=== PATIENT | female | born 1975 | race Caucasian/White ===

== ENCOUNTER → 2016-10-31 | Outpatient (CLI) | payer BC ==
[~2016-10-31] MED LIST: FURO40TA4 PO; MAGN400T39 PO; TOPI25TA10 PO; TORS10TA5 PO
--- NOTE | 2016-10-31 12:09 | Diagnostic Imaging Report ---
PROCEDURE: US PELVIC (NON OB). TECHNIQUE: Multiple real-time grayscale images were obtained over the pelvis in various projections transabdominally. INDICATION: Abdominal pain. Elevated liver enzymes. FINDINGS: The uterus is 7.8 x 4.4 x 3.7 cm. The endometrial stripe is not seen. The ovaries are also obscured by bowel gas. The urinary bladder appears unremarkable. No obvious uterine mass. This exam was ordered as a transabdominal pelvic ultrasound only. IMPRESSION: Limited study. Further evaluation with a transvaginal pelvic ultrasound or CT scan could be considered. Dictated by: Dictated on workstation # [id number]
--- NOTE | 2016-10-31 12:12 | Diagnostic Imaging Report ---
PROCEDURE: US abdomen complete. TECHNIQUE: Multiple real-time grayscale images were obtained over the abdomen in various projections. INDICATION: Elevated liver enzymes. Abdominal pain. FINDINGS: The pancreas is obscured by bowel gas. The liver is fairly homogeneous with no focal lesion. The CBD is obscured. The gallbladder demonstrates no stones or wall thickening. No pericholecystic fluid. The sonographic Cyr sign is reportedly negative. The spleen is 9.1 cm in length, normal. The abdominal aorta is largely obscured. The visualized portions of the IVC appear patent. The left kidney is 9.8 cm and the right kidney is 9.5 cm in length. No hydronephrosis or focal lesion. There is no ascites or fluid collection identified. IMPRESSION: No definite abnormality. Dictated by: Dictated on workstation # [id number]
[2016-10-31 12:36] LABS: ALANINE AMINOTRANSFERASE 440 U/L (0-55); ALBUMIN 4.4 G/DL (3.2-4.5); AMYLASE 43 U/L (25-125); ANION GAP 11 MMOL/L (5-14); ASPARTATE AMINO TRANSFERASE 119 U/L (5-34); BILIRUBIN,TOTAL 0.3 MG/DL (0.1-1.0); BLOOD UREA NITROGEN 10 MG/DL (7-18); BUN/CREATININE RATIO 13; CALCIUM 9.9 MG/DL (8.5-10.1); CARBON DIOXIDE 27 MMOL/L (21-32); CHLORIDE 101 MMOL/L (98-107); CREATININE SERUM 0.75 MG/DL (0.60-1.30); GFR ESTIMATED > 60; GLUCOSE 93 MG/DL (70-105); LIPASE 28 U/L (8-78); SODIUM 139 MMOL/L (135-145); TOTAL PROTEIN 8.1 G/DL (6.4-8.2)
== END ==
LOC: RAD 10:52
PROVIDERS: ATTEND Nurse Practitioner Family
DX: R74.8 Abnormal levels of other serum enzymes (principal); R10.9 Unspecified abdominal pain
CPT/HCPCS: 36415; 76700; 76856; 80053; 80074; 82150; 83690

== ENCOUNTER → 2016-11-21 | Outpatient (CLI) | payer BC ==
[~2016-11-21] MED LIST changes: +CATHETER FLUSH 10 ML SYR IV PRN
--- NOTE | 2016-11-21 18:59 | Diagnostic Imaging Report ---
INDICATION: Abdominal pain Patient received 5.5 mCi technetium 99m Choletec, intravenously. Imaging reveals prompt distribution of activity throughout the liver and rapid uptake by biliary tree and gallbladder. Activity passes into the small bowel. Patient ingested fat containing meal which resulted in approximately 81% gallbladder ejection. Values greater than 50% are considered normal. IMPRESSION: Normal hepatobiliary scan. Dictated by: Dictated on workstation # [id number]
== END ==
LOC: CARD 11:44
PROVIDERS: ATTEND Nurse Practitioner Family
DX: R10.13 Epigastric pain (principal)
CPT/HCPCS: 78227

== ENCOUNTER → 2016-12-12 | Outpatient (CLI) | payer BC ==
[~2016-12-12] MED LIST changes: -CATHETER FLUSH 10 ML SYR IV PRN; +GADOBUTROL 10 MMOL/10 ML (GADAVIST) VIAL IV ONE
--- NOTE | 2016-12-12 14:06 | Diagnostic Imaging Report ---
PROCEDURE: MR imaging of the brain with and without contrast. TECHNIQUE: Multiplanar, multisequence MR imaging of the brain was performed with and without contrast. INDICATION: Facial pain and headache. 10 mL of Gadovist is administered intravenously. FINDINGS: There is no diffusion restriction to suggest an acute infarct or other diffusion abnormality. The brain parenchyma demonstrates normal signal in the gaitan and white matter with no demyelinating lesions, brain edema or enhancing mass identified. There is no hydrocephalus. No extra-axial fluid collection or mass is seen. The central vascular flow voids appear grossly unremarkable. The internal auditory canals and inner ear structures are also symmetric. The pituitary gland is normal in size. No hypothalamic or pineal region mass. IMPRESSION: Unremarkable exam. Dictated by: Dictated on workstation # [id number]
--- NOTE | 2016-12-12 19:44 | Diagnostic Imaging Report ---
PROCEDURE: MRI orbits, maxi/face with and without contrast. TECHNIQUE: Multiplanar, multisequence MRI of the orbits and face was performed with and without contrast. INDICATION: Facial pain. 10 mL of Gadavist is administered intravenously. FINDINGS: There are susceptibility artifacts seen at the level of the teeth, probably related to dental fillings and possible other dental procedures. This could obscure an abnormality in the immediate vicinity of the alveolar plate of the mandible, particularly on the left side. The artifacts do not have significant extension elsewhere, however, outside the region of the mouth. The paranasal sinuses appear normal with no mass or mucosal thickening. There is a normal signal in the pre certification specialist muscles and in the tongue and normal muscle bulk. The submandibular and parotid glands appear unremarkable. The orbits have symmetric appearance with normal caliber of the optic nerves and the extraocular muscles. The globes are symmetric. Minimally prominent lymph nodes up to 1.2 cm in the level II cervical chain are seen on this exam as well as a suggested intraparotid lymph node measuring 1 cm, of questionable clinical significance. Smaller lymph node is also seen in the left parotid gland. The oropharynx and the nasopharynx appear unremarkable. No enhancing mass is appreciated. IMPRESSION: No significant abnormality. Dictated by: Dictated on workstation # [id number]
== END ==
LOC: RAD 09:12
PROVIDERS: ATTEND Nurse Practitioner Family
DX: R51 Headache (principal)
CPT/HCPCS: 70543; 70553

== ENCOUNTER 2016-12-16 14:55 | Outpatient (RCR) | payer BC ==
[2016-11-25 11:00] LABS: BASOPHILS % (AUTO) 0 % (0-10); EOSINOPHILS # (AUTO) 0.2 10^3/uL (0.0-0.3); EOSINOPHILS % (AUTO) 2 % (0-10); LYMPHOCYTES # (AUTO) 2.2 X 10^3 (1.0-4.0); LYMPHOCYTES % (AUTO) 26 % (12-44); MEAN CORPUSCULAR HEMOGLOBIN 30 PG (25-34); MEAN CORPUSCULAR HGB CONC 33 G/DL (32-36); MEAN CORPUSCULAR VOLUME 91 FL (80-99); MEAN PLATELET VOLUME 10.7 FL (7.4-10.4); MONOCYTES # (AUTO) 0.5 X 10^3 (0.0-1.0); MONOCYTES % (AUTO) 5 % (0-12); NEUTROPHILS # (AUTO) 5.5 X 10^3 (1.8-7.8); NEUTROPHILS % (AUTO) 66 % (42-75); PLATELET COUNT 436 10^3/uL (130-400); RED BLOOD COUNT 4.64 10^6/uL (4.35-5.85); RED CELL DISTRIBUTION WIDTH 12.3 % (10.0-14.5); WHITE BLOOD COUNT 8.3 10^3/uL (4.3-11.0)
[2016-11-25 11:12] LABS: ALANINE AMINOTRANSFERASE 45 U/L (0-55); ALBUMIN 4.5 GM/DL (3.2-4.5); ANION GAP 10 MMOL/L (5-14); ASPARTATE AMINO TRANSFERASE 29 U/L (5-34); BILIRUBIN,TOTAL 0.3 MG/DL (0.1-1.0); BLOOD UREA NITROGEN 17 MG/DL (7-18); BUN/CREATININE RATIO 21 (0-20); CALCIUM 9.6 MG/DL (8.5-10.1); CARBON DIOXIDE 28 MMOL/L (21-32); CHLORIDE 100 MMOL/L (98-107); CREATININE SERUM 0.81 MG/DL (0.60-1.30); GFR ESTIMATED > 60; GLUCOSE 101 MG/DL (70-105); HEMOLYSIS 9 (-100-29); ICTERUS 0.4 (-100-1.9); LIPEMIA 3 (-100-49); POTASSIUM 3.8 MMOL/L (3.6-5.0); SODIUM 138 MMOL/L (135-145); TOTAL PROTEIN 7.8 GM/DL (6.4-8.2)
[~2016-12-16 14:55] MED LIST changes: -GADOBUTROL 10 MMOL/10 ML (GADAVIST) VIAL IV ONE
[2016-12-16 15:08] LABS: BASOPHILS % (AUTO) 0 % (0-10); EOSINOPHILS # (AUTO) 0.2 10^3/uL (0.0-0.3); EOSINOPHILS % (AUTO) 2 % (0-10); LYMPHOCYTES # (AUTO) 3.6 X 10^3 (1.0-4.0); LYMPHOCYTES % (AUTO) 40 % (12-44); MEAN CORPUSCULAR HEMOGLOBIN 30 PG (25-34); MEAN CORPUSCULAR HGB CONC 33 G/DL (32-36); MEAN CORPUSCULAR VOLUME 90 FL (80-99); MEAN PLATELET VOLUME 9.5 FL (7.4-10.4); MONOCYTES # (AUTO) 0.9 X 10^3 (0.0-1.0); MONOCYTES % (AUTO) 10 % (0-12); NEUTROPHILS # (AUTO) 4.5 X 10^3 (1.8-7.8); NEUTROPHILS % (AUTO) 49 % (42-75); PLATELET COUNT 450 10^3/uL (130-400); RED BLOOD COUNT 4.12 10^6/uL (4.35-5.85); RED CELL DISTRIBUTION WIDTH 12.3 % (10.0-14.5); WHITE BLOOD COUNT 9.2 10^3/uL (4.3-11.0)
[2016-12-16 15:34] LABS: BILIRUBIN,TOTAL 0.4 MG/DL (0.1-1.0); CALCIUM 9.4 MG/DL (8.5-10.1); CREATININE SERUM 1.12 MG/DL (0.60-1.30); POTASSIUM 3.8 MMOL/L (3.6-5.0); TOTAL PROTEIN 7.1 GM/DL (6.4-8.2)
[2016-12-16 15:55] LABS: THYROID STIMULATING HORMONE 3.83 UIU/ML (0.35-4.94)
== END 2017-02-23 | disposition home or self-care (01) ==
LOC: ONC 14:55
PROVIDERS: ATTEND Internal Medicine Hematology & Oncology
DX: D47.3 Essential (hemorrhagic) thrombocythemia (principal); E66.9 Obesity, unspecified; R53.83 Other fatigue; I10 Essential (primary) hypertension; R61 Generalized hyperhidrosis
CPT/HCPCS: 36415; 80053; 81270; 84443; 85025; 99213; 99214

== ENCOUNTER → 2018-05-13 | Outpatient (CLI) | payer BC ==
--- NOTE | 2018-05-13 11:43 | Diagnostic Imaging Report ---
INDICATION: Routine screening. Comparison is made with prior mammograms from 04/18/2017 and 07/17/2015. 2-D and 3-D bilateral screening mammography was performed with computer-aided detection (CAD) system. FINDINGS: Scattered fibroglandular densities are identified bilaterally. The parenchymal pattern appears to be stable. No mass or malignant-appearing microcalcifications are seen. The axillae are unremarkable. IMPRESSION: No mammographic features suspicious for malignancy are identified. ACR BI-RADS Category 1: Negative. Result letter will be mailed to the patient. Note: At least 10% of breast cancer is not imaged by mammography. Dictated by: Dictated on workstation # [id number]
== END ==
LOC: RAD 09:58
PROVIDERS: ATTEND Obstetrics & Gynecology
DX: Z12.31 Encounter for screening mammogram for malignant neoplasm of breast (principal)
CPT/HCPCS: 77067

== ENCOUNTER → 2018-06-23 | Outpatient (CLI) | payer BC ==
[~2018-06-23] MED LIST changes: +ACYC200C PO; +CLON0.1T PO; +NEBI5TAB8 PO
--- NOTE | 2018-06-23 17:06 | Diagnostic Imaging Report ---
PROCEDURE: US Non-ob pelvis comp/trans. TECHNIQUE: Multiple real-time grayscale images were obtained of the pelvis in various projections endovaginally. Transabdominal imaging was also performed. INDICATION: Abnormal uterine bleeding and acute pelvic pain. FINDINGS: The uterus measures at least 5.5 x 3.2 x 2.5 cm. The fundal portion of the uterus is poorly visualized due to overlying bowel gas. The endometrium appears to be significantly thickened and heterogeneous. Endometrium measures at least 13 mm. Possibility of an endometrial mass cannot be entirely excluded although no internal vascularity is seen. No definite myometrial mass is identified. Left ovary is not visualized. Right ovary measures 1.6 x 1.9 x 1.5 cm. IMPRESSION: 1. Markedly heterogeneous as well as thickened endometrium which appears to contain some debris. Possibility of an endometrial mass cannot be entirely excluded. No other significant abnormality is seen. Dictated by: Dictated on workstation # [id number]
== END ==
LOC: RAD 13:56
PROVIDERS: ATTEND Obstetrics & Gynecology
DX: N93.8 Other specified abnormal uterine and vaginal bleeding (principal); R10.2 Pelvic and perineal pain; R93.89 Abnormal findings on diagnostic imaging of other specified body structures
CPT/HCPCS: 76830; 76856

== ENCOUNTER 2018-06-24 05:37 | Outpatient (CLI) | payer BC ==
[~2018-06-24] VITALS: Ht 157.5 cm; Wt 97.5 kg
[~2018-06-24 05:37] MED LIST changes: -ACYC200C PO; -CLON0.1T PO; -NEBI5TAB8 PO
[2018-06-24] MEDS ORDERED: NEBI5TAB8 PO (14:58)
[2018-06-24] MEDS ORDERED: CLON0.1T PO (14:58)
[2018-06-24] MEDS ORDERED: ACYC200C PO (14:58)
== END 2018-06-24 15:08 | disposition home or self-care (01) ==
LOC: PREOP 05:37
PROVIDERS: ATTEND Obstetrics & Gynecology
DX: Z01.818 Encounter for other preprocedural examination (principal)

== ENCOUNTER 2018-06-26 07:56 | Day surgery (SDC) | payer BC ==
[~2018-06-26] VITALS: Ht 157.5 cm; Wt 94.8 kg
[~2018-06-26 07:56] MED LIST changes: +ACYC200C PO; +CLON0.1T PO; +NEBI5TAB8 PO
[2018-06-26] MEDS ORDERED: LACTATED RINGERS 1,000 ML IV PRN (08:06)
[2018-06-26 08:10] VITALS: BP 124/75
[2018-06-26] MEDS ORDERED: LIDOCAINE PF 2% 5 ML (XYLOCAINE) VIAL ONE (08:37)
[2018-06-26] MEDS ORDERED: proPOfol 200 MG/20 ML (DIPRIVAN) VIAL IV ONE (08:37)
[2018-06-26] MEDS ORDERED: ONDANSETRON 4 MG/2 ML (SDV) Z0FRAN ONE (08:37)
[2018-06-26 08:38] LABS: BASOPHILS % (AUTO) 0 % (0-10); EOSINOPHILS # (AUTO) 0.3 10^3/uL (0.0-0.3); EOSINOPHILS % (AUTO) 4 % (0-10); HEMATOCRIT 41 % (35-52); HEMOGLOBIN 14.2 G/DL (11.5-16.0); LYMPHOCYTES # (AUTO) 1.9 X 10^3 (1.0-4.0); LYMPHOCYTES % (AUTO) 28 % (12-44); MEAN CORPUSCULAR HEMOGLOBIN 31 PG (25-34); MEAN CORPUSCULAR HGB CONC 35 G/DL (32-36); MEAN CORPUSCULAR VOLUME 89 FL (80-99); MEAN PLATELET VOLUME 9.7 FL (7.4-10.4); MONOCYTES # (AUTO) 0.4 X 10^3 (0.0-1.0); MONOCYTES % (AUTO) 6 % (0-12); NEUTROPHILS # (AUTO) 4.2 X 10^3 (1.8-7.8); NEUTROPHILS % (AUTO) 62 % (42-75); PLATELET COUNT 491 10^3/uL (130-400); RED BLOOD COUNT 4.61 10^6/uL (4.35-5.85); WHITE BLOOD COUNT 6.7 10^3/uL (4.3-11.0)
[2018-06-26] MEDS ORDERED: MIDAZOLAM 2 MG/2 ML (VERSED) VIAL ONE (08:38)
[2018-06-26] MEDS ORDERED: fentaNYL INJECTION 100 MCG/2 ML AMP ONE (08:38)
[2018-06-26] MEDS ORDERED: DEXAMETHASONE 10 MG/ML (DECADRON) 1 ML VIAL ONE (08:41)
[2018-06-26] MEDS ORDERED: SEVOFLURANE (ULTANE) 15 ML INHAL SOLN ONE ×2 (08:41→10:14)
[2018-06-26 08:51] LABS: BUN/CREATININE RATIO 19; CALCIUM 9.2 MG/DL (8.5-10.1); CARBON DIOXIDE 25 MMOL/L (21-32); CHLORIDE 103 MMOL/L (98-107); CREATININE SERUM 0.73 MG/DL (0.60-1.30); GFR ESTIMATED > 60; GLUCOSE 74 MG/DL (70-105); SODIUM 139 MMOL/L (135-145)
[2018-06-26] MEDS ORDERED: FURO20TA4 PO (08:53)
[2018-06-26] MEDS ORDERED: BUPIVACAINE 0.25% 30 ML (SENSORCAINE) VIAL ONE (08:58)
--- NOTE | 2018-06-26 09:21 | Progress Note-Pre Operative ---
Pre-Operative Progress Note H&P Reviewed The H&P was reviewed, patient examined and no changes noted. Date Seen by Provider: Jun 26, 2018 Time Seen by Provider: 09:19 Date H&P Reviewed: Jun 26, 2018 Time H&P Reviewed: 09:15 Pre-Operative Diagnosis: AUB, Acute pelvic pain RISSA CARDONA DO Jun 26, 2018 09:21
[2018-06-26] MEDS ORDERED: D5 LR IV SOLUTION 1,000 ML IV SCH (09:29)
[2018-06-26] MEDS ORDERED: KETOROLAC 30 MG/ML VIAL IVP ONE (09:30)
[2018-06-26] MEDS ORDERED: ONDANSETRON 4 MG/2 ML (SDV) Z0FRAN IVP PRN ×2 (09:30→10:30)
[2018-06-26] MEDS ORDERED: HYDROcodone/APAP 5 MG/325 MG (LORTAB) TAB PO PRN (09:30)
--- NOTE | 2018-06-26 09:30 | Discharge Inst-Women's Service ---
Discharge Inst-Women's Serv Depart Medication/Instructions New, Converted or Re-Newed RX: RX on Chart Consults/Follow Up Additional Follow Up: Yes Orders/Referrals Dr. Cardona in 2-3 weeks Activity Activity: Activity as Tolerated (do not drive today or while taking hydrocodone ) Driving Instructions: You May Drive NO SMOKING: NO SMOKING Nothing Inside Vagina: No Douching, No Cross Keys, No Tampons Diet Discharge Diet: No Restrictions Symptoms to Report to : Bleeding Excessive, Pain Increased, Fever Over 101 Degrees F, Vaginal Bleeding Increase, Questions/Concerns For Any Problems or Questions: Contact Your Physician RISSA CARDONA DO Jun 26, 2018 09:30
[2018-06-26] MEDS ORDERED: IBUP-1773 PO (09:31)
[2018-06-26] MEDS ORDERED: ACHD5005 PO (09:31)
[2018-06-26] MEDS ORDERED: HYDROmorphone 2 MG/ML VIAL (DILAUDID) ONE (10:20)
[2018-06-26] MEDS ORDERED: morphine INJ 10 MG/ML 1ML (SYR OR VIAL) ONE (10:21)
[2018-06-26] MEDS ORDERED: HYDROmorphone 2 MG/ML VIAL (DILAUDID) IV ONE (10:30)
[2018-06-26 11:15] VITALS: BP 114/52
[2018-06-26 11:45] VITALS: BP 110/62
[2018-06-26 12:15] VITALS: BP 110/64
[2018-06-26 12:20] VITALS: BP 110/64
--- NOTE | 2018-06-26 13:51 | Anesthesia-General Post-Op ---
General Patient Condition Mental Status/LOC: Same as Preop Cardiovascular: Satisfactory Nausea/Vomiting: Absent Respiratory: Satisfactory Pain: Controlled Complications: Absent Post Op Complications Complications None Follow Up Care/Instructions Patient Instructions None needed. Anesthesia/Patient Condition Patient Condition Patient is doing well, no complaints, stable vital signs, no apparent adverse anesthesia problems. No complications reported per nursing. TITUS SHAFFER CRNA Jun 26, 2018 13:50
--- NOTE | 2018-06-26 14:52 | OPERATIVE REPORT ---
DATE OF SERVICE: 06/26/2018 PREOPERATIVE DIAGNOSES: A 43-year-old female with: 1. Abnormal uterine bleeding. 2. Pelvic pain. 3. Obesity. POSTOPERATIVE DIAGNOSES: A 43-year-old female with: 1. Abnormal uterine bleeding. 2. Pelvic pain. 3. Obesity. PROCEDURE: D and C with hysteroscopy. SURGEON: Rissa Cardona DO ANESTHESIA: General endotracheal. ESTIMATED BLOOD LOSS: Minimal. URINE OUTPUT: 50 mL. FLUIDS: 600 mL lactate Ringer solution. FINDINGS: Mild to moderate amount of endometrial fluffy tissue. No evidence of polyp formation. Grossly normal endometrial cavity otherwise. SPECIMENS SENT: Endometrial curettings. INDICATION FOR PROCEDURE: This 43-year-old female is a patient that urgently was scheduled to my office due the amount of bleeding she was having. She has been having it for the past month; however, significantly increased according to her earlier this week. When I saw the patient in the office, she was passing blood clots from the external cervical os and significant amount of bleeding was noted in the vaginal vault. I ordered a stat hemoglobin and it was found to be stable and a stat ultrasound, which showed a mild thickening of the lining. I discussed with the patient proceeding with D and C. We scheduled it for the next available elective time due to her hemoglobin being stable. Risks of procedure were discussed with the patient in detail including risks of bleeding, infection, damage to the surrounding structures including, but not limited to the uterus itself. After everything was discussed with the patient, consent was obtained in the preoperative area and the patient was taken to the operating room. OPERATIVE REPORT IN DETAIL: Once in the operating room, anesthesia was found to be adequate. She was placed in dorsal lithotomy position, prepped and draped in normal sterile fashion. Weighted speculum was inserted in the patient's vagina after a timeout was performed and the bladder was drained using straight catheterization. Right angle retractors were then used to visualize the cervix, which was grasped at 12 o'clock position using a long Allis clamp. I then performed a paracervical block using 0.25% Marcaine at 3 and 9 o'clock positions on the cervix. Care was taken to aspirate before injecting. 5 mL were injected into each site. I then sounded the uterine cavity depth and it was found to be 8 cm. I then gently dilated the cervix using Hegar dilators to maximum dilatation, approximately 4 to 5 mm, which allows me to place a hysteroscope. Using the [employer] fluid management system and normal saline as my fluid, I am able to perform hysteroscopy and visualize all the findings as described in my findings above. These were all recorded with pictures. After which, I removed the hysteroscope and performed a gentle curetting using a medium sized endometrial curette. A small to moderate amount of endometrial curettings was collected and sent to pathology as endometrial curettings. The patient's bleeding was stable afterwards and there was little to no bleeding noted. The patient tolerated the procedure well and was taken to recovery area in stable condition. Lap and sponge counts were correct at the end of the procedure. Instrument counts were correct as well. Job ID: [id number] DocumentID: [id number] Dictated Date: 06/26/2018 10:20:00 Funeral Car Chauffeur Date: 06/26/2018 14:51:30 Dictated By: RISSA CARDONA DO
== END 2018-06-26 12:30 | disposition home or self-care (01) ==
LOC: SDC 07:56
PROVIDERS: ATTEND Obstetrics & Gynecology
DX: N93.9 Abnormal uterine and vaginal bleeding, unspecified (principal); R10.2 Pelvic and perineal pain; K21.9 Gastro-esophageal reflux disease without esophagitis; E66.9 Obesity, unspecified; Z68.38 Body mass index [BMI] 38.0-38.9, adult; Z87.891 Personal history of nicotine dependence; Z79.82 Long term (current) use of aspirin; Z79.899 Other long term (current) drug therapy
CPT/HCPCS: 36415; 80048; 84703; 85025; 86850; 86900; 86901; 87081; 94664

== ENCOUNTER → 2020-08-25 | Outpatient (CLI) | payer BC ==
[~2020-08-25] MED LIST changes: +ACHD5005 PO; +CLN.1T PO; -CLON0.1T PO; +FURO20TA4 PO; +IBUP-1773 PO
--- NOTE | 2020-08-25 12:04 | Diagnostic Imaging Report ---
PROCEDURE: US Non-ob pelvis comp/trans. TECHNIQUE: Multiple realtime grayscale images were obtained of the pelvis in various projections endovaginally. Transabdominal imaging was also performed. INDICATION: Abnormal uterine bleeding. COMPARISON: 06/23/2018. FINDINGS: Transabdominal images of the pelvis demonstrate an unremarkable uterus. The ovaries are not well visualized transabdominally. No large adnexal masses are seen. Endovaginal images were obtained for further characterization. The uterus is anteverted and measures 7.1 x 3.4 x 4.2 cm. No focal masses are seen within the uterus. The endometrium measures 0.5 cm it has an unremarkable appearance. The right ovary is not well seen due to overlying bowel gas. The left ovary measures 2.3 x 1.6 x 1.7 cm. No focal ovarian masses are seen. No adnexal masses are identified. There is normal color Doppler flow to the left ovary. No free fluid is seen in the pelvis. IMPRESSION: 1. Unremarkable sonographic appearance of the uterus and left ovary. No evidence of mass or torsion. 2. Nonvisualization of the right ovary due to overlying bowel gas. No obvious adnexal masses seen. No free fluid. Dictated by: Dictated on workstation # [id number]
--- NOTE | 2020-08-25 12:21 | Diagnostic Imaging Report ---
Indication: Routine screening. Comparison is made prior mammogram 05/13/2018 and 04/18/2017. 2-D and 3-D bilateral screening mammography was performed with CAD. Scattered fibroglandular densities are identified bilaterally. There are benign calcifications present. No mass or malignant appearing microcalcifications are seen. Axillae are unremarkable. IMPRESSION: BI-RADS Category 2 No mammographic features suspicious for malignancy are identified. ACR BI-RADS Category 2: Benign findings. Result letter will be mailed to the patient. Note: At least 10% of breast cancer is not imaged by mammography. Dictated by: Dictated on workstation # [id number]
== END ==
LOC: RAD 10:06
PROVIDERS: ATTEND Obstetrics & Gynecology
DX: Z12.31 Encounter for screening mammogram for malignant neoplasm of breast (principal); N93.9 Abnormal uterine and vaginal bleeding, unspecified
CPT/HCPCS: 76830; 76856; 77063; 77067

== ENCOUNTER → 2021-10-25 | Outpatient (CLI) | payer BC ==
[~2021-10-25] MED LIST changes: +ACYC-108 PO; -ACYC200C PO
--- NOTE | 2021-10-29 14:41 | Diagnostic Imaging Report ---
Indication: Routine screening. Comparison is made with prior mammogram from 08/25/2020 and 05/13/2018. 2-D and 3-D bilateral screening mammography was performed with CAD. CAD is utilized. The current study was also evaluated with a Computer Aided Detection (CAD) system. Scattered fibroglandular densities are identified bilaterally. The parenchymal pattern is stable. No mass or malignant-appearing microcalcifications are seen. There are scattered benign calcifications. Axillae are unremarkable. IMPRESSION: BI-RADS Category 2 No mammographic features suspicious for malignancy are identified. ACR BI-RADS Category 2: Benign findings. Result letter will be mailed to the patient. Note: At least 10% of breast cancer is not imaged by mammography. Dictated by: Dictated on workstation # [id number]
== END ==
LOC: RAD 10:15
PROVIDERS: ATTEND Obstetrics & Gynecology
DX: Z12.31 Encounter for screening mammogram for malignant neoplasm of breast (principal)
CPT/HCPCS: 77063; 77067

== ENCOUNTER 2021-12-31 05:28 | Outpatient (CLI) | payer BC ==
[~2021-12-31] VITALS: Ht 157.5 cm; Wt 73.7 kg
[2021-12-31] MEDS ORDERED: MULT-974 PO (13:14)
[2021-12-31] MEDS ORDERED: CRAN200C PO (13:14)
== END 2021-12-31 13:30 | disposition home or self-care (01) ==
LOC: PREOP 05:28
PROVIDERS: ATTEND Obstetrics & Gynecology
DX: Z01.818 Encounter for other preprocedural examination (principal)

== ENCOUNTER 2022-01-07 07:16 | Day surgery (SDC) | payer BC ==
[2022-01-07] VITALS (10 sets, daily range): BP systolic 96–122; BP diastolic 63–88
[~2022-01-07] VITALS: Ht 157.5 cm; Wt 73.7 kg
[~2022-01-07 07:16] MED LIST changes: +CRAN200C PO; +MULT-974 PO
[2022-01-07] MEDS ORDERED: LACTATED RINGERS 1,000 ML IV PRN (07:30)
--- NOTE | 2022-01-07 07:40 | Progress Note-Pre Operative ---
Pre-Operative Progress Note Date of Available H&P: Jan 07, 2022 Date H&P Reviewed: Jan 07, 2022 Time H&P Reviewed: 07:45 History & Physical: H&P Reviewed Changes from last HP none Pre-Operative Diagnosis: RISSA AMADOR DO Jan 07, 2022 07:40
[2022-01-07] MEDS ORDERED: BUPIVACAINE 0.25% 30 ML (SENSORCAINE) VIAL ONE (08:03)
[2022-01-07 08:09] LABS: BASOPHILS % (AUTO) 1 % (0-10); EOSINOPHILS # (AUTO) 0.2 10^3/uL (0.0-0.3); EOSINOPHILS % (AUTO) 5 % (0-10); HEMATOCRIT 39 % (35-52); LYMPHOCYTES # (AUTO) 1.6 10^3/uL (1.0-4.0); LYMPHOCYTES % (AUTO) 33 % (12-44); MEAN CORPUSCULAR HEMOGLOBIN 31 pg (25-34); MEAN CORPUSCULAR HGB CONC 34 g/dL (32-36); MEAN CORPUSCULAR VOLUME 92 fL (80-99); MEAN PLATELET VOLUME 10.1 fL (9.0-12.2); MONOCYTES # (AUTO) 0.3 10^3/uL (0.0-1.0); MONOCYTES % (AUTO) 6 % (0-12); NEUTROPHILS # (AUTO) 2.7 10^3/uL (1.8-7.8); NEUTROPHILS % (AUTO) 55 % (42-75); PLATELET COUNT 336 10^3/uL (130-400); WHITE BLOOD COUNT 4.9 10^3/uL (4.3-11.0)
[2022-01-07] MEDS ORDERED: fentaNYL INJ 100 MCG/2 ML AMP ONE (08:51)
[2022-01-07] MEDS ORDERED: MIDAZOLAM 2 MG/2 ML (VERSED) VIAL ONE (08:51)
--- NOTE | 2022-01-07 09:22 | Discharge Inst-Women's Service ---
Discharge Inst-Women's Serv Depart Medication/Instructions New, Converted or Re-Newed RX: Transmitted to Pharmacy Problems Reviewed?: Yes Consults/Follow Up Additional Follow Up: Yes Orders/Referrals Dr. Cardona in 7-10 days Activity Activity: Activity as Tolerated Driving Instructions: No Driving for 1 Week NO SMOKING: NO SMOKING Nothing Inside Vagina: No Douching, No [place], No Tampons Diet Discharge Diet: No Restrictions Symptoms to Report to : Bleeding Excessive, Pain Increased, Fever Over 101 Degrees F, Vaginal Bleeding Increase, Questions/Concerns For Any Problems or Questions: Contact Your Physician RISSA CARDONA DO Jan 07, 2022 09:22
[2022-01-07] MEDS ORDERED: ONDANSETRON 4 MG/2 ML (SDV) Z0FRAN IVP PRN ×2 (09:30→11:30)
[2022-01-07] MEDS ORDERED: KETOROLAC 30 MG/ML VIAL IVP ONE (09:30)
[2022-01-07] MEDS ORDERED: D5 LR IV SOLUTION 1,000 ML IV SCH (09:30)
[2022-01-07] MEDS ORDERED: HYDROcodone/APAP 5 MG/325 MG (LORTAB) TAB PO PRN (09:30)
--- NOTE | 2022-01-07 11:17 | Anesthesia-General Post-Op ---
General Patient Condition Mental Status/LOC: Same as Preop Cardiovascular: Satisfactory Nausea/Vomiting: Absent Respiratory: Satisfactory Pain: Controlled Complications: Absent Post Op Complications Complications None Follow Up Care/Instructions Patient Instructions None needed. Anesthesia/Patient Condition Patient Condition Patient is doing well, no complaints, stable vital signs, no apparent adverse anesthesia problems. No complications reported per nursing. PB CRAFT CRNA Jan 07, 2022 11:17
[2022-01-07] MEDS ORDERED: proPOfol 200 MG/20 ML (DIPRIVAN) VIAL IV ONE (12:08)
[2022-01-07] MEDS ORDERED: SEVOFLURANE (ULTANE) 15 ML INHAL SOLN ONE (12:08)
--- NOTE | 2022-01-07 15:48 | OPERATIVE REPORT ---
DATE OF SERVICE: PREOPERATIVE DIAGNOSES: A 38-year-old female with abnormal uterine bleeding. POSTOPERATIVE DIAGNOSIS: A 38-year-old female with abnormal uterine bleeding. PROCEDURE: D and C. SURGEON: Rissa Cardona DO ANESTHESIA: LMA general. ESTIMATED BLOOD LOSS: Minimal. URINE OUTPUT: 50 mL drained at start of procedure. FLUIDS: 800 mL lactated Ringer's solution. FINDINGS: Grossly normal appearing external female genitalia. Small to moderate amount of endometrial curettings. SPECIMEN SENT: Endometrial curettings. INDICATIONS FOR PROCEDURE: This 46-year-old female is a patient who had returned to care due to abnormal bleeding that was irregular and heavy. Due to her age and her body habitus, we discussed proceeding with Duran and Ghislaine for endometrial sampling. The risks of procedure were discussed with the patient in detail including risk of bleeding, infection, damaging surrounding structures including the uterus itself, recovery timeframe and followup were all discussed. After all of her questions were answered, consent was obtained, the patient was taken to the operating room. OPERATIVE REPORT IN DETAIL: Once in the operating room, general anesthesia was found to be adequate, placed in dorsal lithotomy position, prepped and draped in normal sterile fashion. Timeout was performed. A weighted speculum inserted to the patient's vagina. After the bladder was drained using straight catheterization, a right angle retractor was used to visualize the cervix. It was grasped at 12 o'clock position using a long Allis clamp. I then performed a paracervical block at 3 and 9 o'clock positions on the cervix. Care was taken to aspirate for injecting 5 mL of 0.25% Marcaine are injected into each site. I then gently sound the uterine cavity depth, which was found to be 8 cm. I then gently dilated cervix using Hanks dilators to maximum dilatation approximately 1 cm, at which point I performed a gentle curettage of all endometrial surfaces and collect all this tissue and sent it as endometrial curettings, after which there was no active bleeding noted from any of my dissection planes of the uterus itself. All instruments were removed from the patient's vagina. The patient tolerated the procedure well and sent to recovery area in stable condition. Lap and sponge counts were correct at the end of procedure. Instrument counts correct as well. Job ID: [id number] DocumentID: [id number] Dictated Date: 01/07/2022 09:59:51 Terrazzo Layer Helper Date: 01/07/2022 15:47:17 Dictated By: RISSA CARDONA DO
== END 2022-01-07 11:15 | disposition home or self-care (01) ==
LOC: SDC 07:16
PROVIDERS: ATTEND Obstetrics & Gynecology
DX: N84.0 Polyp of corpus uteri (principal); N93.8 Other specified abnormal uterine and vaginal bleeding; E66.9 Obesity, unspecified; Z68.29 Body mass index [BMI] 29.0-29.9, adult; Z87.891 Personal history of nicotine dependence
CPT/HCPCS: 36415; 84703; 85025; 86850; 86900; 86901; 87081

== ENCOUNTER → 2023-03-12 | Outpatient (CLI) | payer BC ==
--- NOTE | 2023-03-12 13:42 | Diagnostic Imaging Report ---
INDICATION: Routine screening. COMPARISON: 10/25/2021 and 08/25/2020. TECHNIQUE: 2D and 3D bilateral screening mammography was performed with CAD. FINDINGS: Scattered fibroglandular densities are identified bilaterally. The parenchymal pattern is stable. No mass or malignant-appearing microcalcifications are seen. The axillae are unremarkable. IMPRESSION: No mammographic features suspicious for malignancy are identified. ACR BI-RADS Category 1: Negative. Result letter will be mailed to the patient. Note: At least 10% of breast cancer is not imaged by mammography. Dictated by: Dictated on workstation # [id number]
== END ==
LOC: RAD 11:00
PROVIDERS: ATTEND Obstetrics & Gynecology
DX: Z12.31 Encounter for screening mammogram for malignant neoplasm of breast (principal)
CPT/HCPCS: 77063; 77067